=== PATIENT | male | born 1945 | race Caucasian/White ===

== ENCOUNTER 2022-11-24 11:55 | Emergency (ER) | payer OTHER ==
[~2022-11-24] VITALS: Ht 177.8 cm; Wt 95.3 kg
--- NOTE | 2022-11-24 12:05 | NUR ---
Pt brought by self, A&Ox4, pt presents to ER with R eye pain x 1 week, pt had episode of seen floaters and double vision 4 days ago, pt was cleared by underwriting technician, denies other symptoms, skin pink and warm, cap refill <3, VSS.
[2022-11-24 12:06] VITALS: BP_SYST 160
--- NOTE | 2022-11-24 12:20 | NUR ---
Dr Smith evaluating patient at bedside
[2022-11-24 15:10] VITALS: BP_SYST 160
--- NOTE | 2022-11-24 15:12 | NUR ---
Patient given written and verbal discharge instructions and verbalizes understanding. ER MD discussed with patient the results and treatment provided. Patient in stable condition. ID arm band removed. No Rx given. Patient educated on pain management and to follow up with PMD. Pain Scale 2/10. Opportunity for questions provided and answered. Medication side effect fact sheet provided.
== END 2022-11-24 15:12 | disposition home or self-care (01) ==
LOC: SED 11:55
DX: H53.2 Diplopia (principal); H57.11 Ocular pain, right eye; Z79.899 Other long term (current) drug therapy
CPT/HCPCS: 70450-TC; 76376; 99284